=== PATIENT | male | born 1945 | race Caucasian/White ===

== ENCOUNTER 2016-09-22 16:18 | Emergency (ER) | payer OTHER, MEDICARE ==
[2016-09-22 16:27] VITALS: TEMP 98.1
--- NOTE | 2016-09-22 16:51 | EDPHY ---
H & P Time Seen by Provider: 09/22/16 16:33 HPI/ROS: CHIEF COMPLAINT: Visual change HISTORY OF PRESENT ILLNESS: The patient is a 71-year-old male with a history of high cholesterol who presents emergency department after developing visual change. Patient was working on his computer we noticed screen go "cloudy." The patient covered each eye. Out of his right eye only saw a "bright white light." His left eye was normal. His symptoms lasted 2-3 minutes and then resolved. He did not noticed a curtain fall or blackening of his vision. He had no double vision. He denies headache or neck pain. No recent trauma or fall. No fever or chills. No nausea or vomiting. No weakness or numbness. No other focal deficits. Patient states he was taking Cialis for urinary symptoms. He read on bottle that if your vision changes you should call your doctor immediately. Because of this he discontinued it 2-3 months ago. REVIEW OF SYSTEMS: My complete review of systems is negative except as mentioned in the HPI. Past Medical/Surgical History: Includes high cholesterol Smoking Status: Never smoked Physical Exam: Vitals noted. 161/103 GENERAL: Well-appearing, in no acute distress, alert. Visual acuity: Noted. Eyelids: Normal inspection, everted for exam. Conjunctiva and sclera: Normal inspection. No exudate. Not injected. Corneas: Normal inspection. EOMs: Intact. Pupils: PERRL, normal accommodation. Anterior chambers: No hyphema. Posterior segments: Normal funduscopic exam HEENT: Eye exam see above, normal pharynx, no signs of dehydration. NECK: No thyromegaly, no lymphadenopathy, supple. RESPIRATORY: Clear to auscultation bilaterally, no rales, rhonchi or wheezing. CVS: Regular rate and rhythm, no rubs, murmurs, or gallops. ABDOMEN: Soft, nontender, nondistended, no organomegaly. BACK: Normal to inspection, no CVA tenderness. SKIN: Normal color, no rash, warm, dry. No pallor. EXTREMITIES: No pedal edema, no calf tenderness, no Homans sign or cords, no joint swelling. NEURO/PSYCH: Higher functions: Alert and Oriented x3. Normal speech and cognition. Normal mood and affect. Cranial nerves: Normal as tested. Cerebellar: Normal as tested. Good finger to nose, good [id number], normal gait. Peripheral exam: Normal motor exam. Normal sensation. Normal reflexes. NIHSS = 0 Constitutional: Initial Vital Signs Temperature (C) 36.7 C 09/22/16 16:24 Heart Rate 66 09/22/16 16:24 Respiratory Rate 17 09/22/16 16:24 Blood Pressure 161/103 H 09/22/16 16:24 O2 Sat (%) 96 09/22/16 16:24 O2 Delivery Mode Room Air Allergies/Adverse Reactions: No Known Allergies Allergy (Unverified 09/22/16 16:23) Home Medications: Medication Instructions Recorded Cialis 09/22/16 Crestor 09/22/16 Medical Decision Making - Diagnostics EKG Interpretation: Sinus rhythm at 54. 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 Flipped T III, aVF, V3 Imaging Results: Imaging Impressions Carotid Doppler Study 09/22/16 18:07 Impression: No evidence of flow-limiting carotid stenosis. Minimal bilateral carotid bifurcation plaque formation. Measurement of carotid stenosis is based on velocity parameters that correlate the residual internal carotid diameter with [place] Symptomatic Carotid Endarterectomy Trial (NASCET) based stenosis levels. ED Course/Re-evaluation: In the emergency department I discussed possible etiologies with the patient. I answered all his questions. IV was placed. Laboratory studies were obtained. CBC and chemistry unremarkable. Coags normal. I rechecked the patient while here. He was stable during his stay. No new focal deficits. No visual change. I discussed case with Dr. Miranda. She was see the patient in the office tomorrow. She does not want any further imaging performed this evening. Discussed this plan with the patient. I answered all his questions. Prior to leaving the patient described a few floaters scattered throughout his visual field. This was in both eyes. He had no further complaints. No focal deficits on repeat exam. He will return to the emergency department immediately if he has return of his symptoms or any other concerns. Differential Diagnosis: My differential includes but is not limited to retinal detachment, vitreous hemorrhage, CRAO, CRVO, CVA, dissection, aneurysm - Data Points Laboratory Results: Laboratory Results 09/22/16 16:40 09/22/16 16:40 09/22/16 09/22/16 09/22/16 16:40 16:40 16:40 WBC 6.15 10^3/uL 10^3/uL (3.80-9.50) RBC 4.87 10^6/uL 10^6/uL (4.40-6.38) Hgb 15.7 g/dL g/dL (13.7-17.5) Hct 45.4 % % (40.0-51.0) MCV 93.2 fL fL (81.5-99.8) MCH 32.2 pg pg (27.9-34.1) MCHC 34.6 g/dL g/dL (32.4-36.7) RDW 13.2 % % (11.5-15.2) Plt Count 213 10^3/uL 10^3/uL (150-400) MPV 9.8 fL fL (8.7-11.7) Neut % (Auto) 49.1 % % (39.3-74.2) Lymph % (Auto) 40.7 % % (15.0-45.0) [place] % (Auto) 8.5 % % (4.5-13.0) Eos % (Auto) 0.8 % % (0.6-7.6) Baso % (Auto) 0.7 % % (0.3-1.7) Nucleat RBC Rel Count 0.0 % % (0.0-0.2) Absolute Neuts (auto) 3.03 10^3/uL 10^3/uL (1.70-6.50) Absolute Lymphs (auto) 2.50 10^3/uL 10^3/uL (1.00-3.00) Absolute Monos (auto) 0.52 10^3/uL 10^3/uL (0.30-0.80) Absolute Eos (auto) 0.05 10^3/uL 10^3/uL (0.03-0.40) Absolute Basos (auto) 0.04 10^3/uL 10^3/uL (0.02-0.10) Absolute Nucleated RBC 0.00 10^3/uL 10^3/uL (0-0.01) Immature Gran % 0.2 % % (0.0-1.1) Immature Gran # 0.01 10^3/uL 10^3/uL (0.00-0.10) PT 12.3 SEC SEC (12.0-15.0) INR 0.92 (0.83-1.16) APTT 30.9 SEC SEC (23.0-38.0) Sodium 139 mEq/L mEq/L (134-144) Potassium 4.0 mEq/L mEq/L (3.5-5.2) Chloride 107 mEq/L mEq/L (97-110) Carbon Dioxide 21 mEq/l L mEq/l (22-31) Anion Gap 11 mEq/L mEq/L (8-16) BUN 21 mg/dL mg/dL (7-23) Creatinine 1.2 mg/dL mg/dL (0.7-1.3) Estimated GFR 60 Glucose 112 mg/dL H mg/dL (70-100) Calcium 9.1 mg/dL mg/dL (8.5-10.4) Troponin I < 0.012 ng/mL ng/mL (0-0.034) Departure - Departure Disposition: Home, Routine, Self-Care Clinical Impression: Visual changes Condition: Good Instructions: Blurred Vision (ED) Additional Instructions: Return with visual change, blurred vision, eye pain, headache, weakness, numbness or any other concerns. Referrals: Brenna Rothman MD [Primary Care Provider] - As per Instructions Denae Miranda MD [Non Staff Provider ()] - 1 day without fail
[2016-09-22 17:06] LABS: % IMMATURE GRANULYOCYTES 0.2 % (0.0-1.1); ABSOLUTE IMMATURE GRANULOCYTES 0.01 10^3/uL (0.00-0.10); ADD DIFF? NO; ADD MORPH? NO; ADD SCAN? NO; ATYPICAL LYMPHOCYTE FLAG 0 (0-99); FRAGMENT RBC FLAG 0 (0-99); HEMATOCRIT 45.4 % (40.0-51.0); HEMOGLOBIN 15.7 g/dL (13.7-17.5); LEFT SHIFT FLG 0 (0-99); LIPEMIA HEMOLYSIS FLAG 90 (0-99); MEAN CELL HEMOGLOBIN 32.2 pg (27.9-34.1); MEAN CELL HEMOGLOBIN CONCENTR. 34.6 g/dL (32.4-36.7); MEAN CELL VOLUME 93.2 fL (81.5-99.8); MEAN PLATELET VOLUME 9.8 fL (8.7-11.7); PLATELET CLUMPS FLAG 0 (0-99); PLATELET COUNT 213 10^3/uL (150-400); RED BLOOD CELL COUNT 4.87 10^6/uL (4.40-6.38); RED CELL DISTRIBUTION WIDTH 13.2 % (11.5-15.2)
[2016-09-22 17:13] LABS: ANION GAP 11 mEq/L (8-16); CARBON DIOXIDE 21 mEq/l (22-31); CHLORIDE 107 mEq/L (97-110); SODIUM 139 mEq/L (134-144)
[2016-09-22 17:14] LABS: CALCIUM 9.1 mg/dL (8.5-10.4); CREATININE 1.2 mg/dL (0.7-1.3); GLOMERULAR FILTRATION RATE 60; GLUCOSE 112 mg/dL (70-100)
[2016-09-22 17:16] LABS: INR 0.92 (0.83-1.16); PROTIME(PATIENT) 12.3 SEC (12.0-15.0)
[2016-09-22 17:17] LABS: APTT 30.9 SEC (23.0-38.0)
[2016-09-22 17:26] LABS: TROPONIN I < 0.012 ng/mL (0-0.034)
--- NOTE | 2016-09-22 18:02 | CPEKG ---
Heart Rate: 54 RR Interval: 1111 P-R Interval: 168 QRSD Interval: 114 QT Interval: 460 QTC Interval: 436 P [place]: 29 QRS [place]: -41 T Wave [place]: -20 EKG Severity - ABNORMAL ECG - EKG Impression: SINUS RHYTHM EKG Impression: INCOMPLETE RBBB AND LAFB Electronically Signed By: Maria Antonia Benjamin 22-Sep-2016 23:48:08
[2016-09-22 19:52] VITALS: BP 168/104; PULSE 61; RESP 18; O2SAT 95
== END 2016-09-22 19:52 | disposition home or self-care (01) ==
DX: H53.8 Other visual disturbances (principal)

== ENCOUNTER → 2016-10-28 | Outpatient (CLI) | payer OTHER, MEDICARE | LOC: FIMAGING 09:39 | PROVIDERS: ATTEND Psychiatry & Neurology Neurology | DX: H53.9 Unspecified visual disturbance (principal); G31.9 Degenerative disease of nervous system, unspecified; R93.0 Abnormal findings on diagnostic imaging of skull and head, not elsewhere classified; J34.89 Other specified disorders of nose and nasal sinuses ==

== ENCOUNTER → 2016-11-04 | Outpatient (CLI) | payer OTHER, MEDICARE ==
[~2016-11-04] MED LIST: IOPAMIDOL (ISOVUE 370) 100 ML BTL IV ONE
== END ==
LOC: FIMAGING 08:47
PROVIDERS: ATTEND Psychiatry & Neurology Neurology
CPT/HCPCS: 70496; 70498; Q9967